=== PATIENT | female | born 1975 | race Caucasian/White ===

== ENCOUNTER 2018-01-26 15:46 | Inpatient (IN) | payer BC, OTHER ==
[~2018-01-26] VITALS: Ht 162.6 cm; Wt 65.8 kg
[2018-01-26] MEDS ORDERED: LORAZEPAM 1 MG TABLET PO PRN (17:00)
[2018-01-26] MEDS ORDERED: diphenhydrAMINE 50 MG CAPSULE PO PRN (17:00)
[2018-01-26] MEDS ORDERED: THIAMINE HCL 200 MG/2 ML VIAL IM ONE (17:00)
[2018-01-26] MEDS ORDERED: DOCUSATE SODIUM 250 MG CAPSULE PO PRN (17:00)
[2018-01-26] MEDS ORDERED: LORAZEPAM 2 MG/1 ML VIAL IM PRN (17:00)
[2018-01-26] MEDS ORDERED: BUPRENORPHINE HCL 2 MG TAB.SUBL SL PRN (17:00)
[2018-01-26] MEDS ORDERED: ACETAMINOPHEN 325 MG TABLET PO PRN (17:00)
[2018-01-26] MEDS ORDERED: NICOTINE POLACRILEX 4 MG GUM-PK OF TEN BC PRN (17:00)
[2018-01-26] MEDS ORDERED: ONDANSETRON 4 MG/2 ML VIAL IM PRN (17:00)
[2018-01-26] MEDS ORDERED: MIRALAX 17 GM POWD.PACK PO PRN (17:00)
[2018-01-26] MEDS ORDERED: LOPERAMIDE HCL 2 MG CAPSULE PO PRN ×2 (17:00)
[2018-01-26] MEDS ORDERED: MAGNESIUM HYDROXIDE 30 ML LIQUID UDC PO PRN (17:00)
[2018-01-26] MEDS ORDERED: MAG HYDROX/AL HYDROX/SIMETH 30 ML LIQUID UDC PO PRN (17:00)
[2018-01-26] MEDS ORDERED: NICOTINE 14 MG/24HR PATCH TD PRN (17:00)
[2018-01-26] MEDS ORDERED: DICYCLOMINE HCL 20 MG TABLET PO PRN (17:00)
[2018-01-26] MEDS ORDERED: CLONIDINE HCL 0.1 MG TABLET PO PRN (17:00)
--- NOTE | 2018-01-26 17:00 | NUR ---
INTAKE ASSESSMENT Received patient in intake. she is AOX4, stable, and ambulatory. Vital signs WNL. Patient reports NKA. Patient denies any history of seizure. Patient brought medications from home. Explained unit protocols and patient verbalized understanding. Will admit patient upon admission to third floor.
[2018-01-26] MEDS ORDERED: CELE100C PO (17:08)
[2018-01-26] MEDS ORDERED: METH500T PO (17:08)
[2018-01-26] MEDS ORDERED: PREG200C PO (17:08)
[2018-01-26] MEDS ORDERED: ESCI10TA PO (17:08)
[2018-01-26] MEDS ORDERED: QUET50TA PO (17:08)
--- NOTE | 2018-01-26 17:15 | NUR ---
ADMISSION NOTE STATUS-FULL CODE ALLERGY-NKA HEIGHT-5'4' WEIGHT-145IBS VITAL SIGNS-BP: 131/90, P: 72, R: 18, O2: 96%, T: 97.1, PA: 0/10 PCP-DR. Da Silva in [place] Pt is a 42 year old female admitted on 01/26/18 for ETOH dependence, arrived on the unit at 1715. Pt able to provide UDS during intake. Skin and body check completed. Pt is full code, NKA, regular diet and on fall/seizure precautions. No reported seizure history. Patient reports PMH of anxiety,depression,Chronic lower back pain, Hep-C, Alcohol induced cirrhosis. Pt refuses flu/pneumonia vaccine. Pt is currently intoxicated and reports her last intake was Beer in the flight 3 bottles of Barley. Pt brought home medication with her. Patient reports first using alcohol at age [age] years old. Patient reported never sober since past 10 years and was in treatment in [facility] and left AMA and relapsed. Patient reports drinking beer, taking Xanax for last 5 years 2 to 6 bars daily last used was on 01/26/18 2 bars PO, Hydrocodone for last 5 years on and off from 60 to 80 mg PO daily last used was 01/26/18 14mg PO. Pt reports this is her 11th time in treatment. Patient is unable to recall the names but last one was in November 2017 in [facility]. Patient reports family history of using ETOH, and medical history of DM-2 and HTN. Upon assessment, pt is AAOx4 and presents with anxiety, agitation, fatigue. Respirations even and unlabored. Denies SOB or chest pain. Bowel sounds active x 4, abdomen soft. PERRLA. Skin intact, no open wounds noted. Pt denies SI/HI at this time. Patient denies any history of SI/HI. Pt oriented to room and encouraged to notify staff with any concerns. Safety measures in place. Call light within reach, side rails up x 2, bed locked and in low position. Will continue to monitor. Addendum: 01/26/18 at 1908 by MARY KATE DEVINE LVN ERROR- Patient admitted for ETOH/OPIOID WITHDRAWAL
[2018-01-26 17:19] LABS: *URINE HCG, QUAL NEGATIVE (NEGATIVE)
[2018-01-26 17:20] LABS: BASOPHILS % (AUTO) 0.4 % (0.0-2.0); EOSINOPHILS # (AUTO) 0.1 K/uL (0.0-0.7); EOSINOPHILS % (AUTO) 0.8 % (0.0-7.0); HEMATOCRIT 47.6 % (31.2-41.9); HEMOGLOBIN 16.1 g/dL (10.9-14.3); LYMPHOCYTES # (AUTO) 5.1 K/uL (20.0-40.0); LYMPHOCYTES % (AUTO) 46.6 % (20.5-51.5); MEAN CORPUSCULAR HEMOGLOBIN 29.7 uug (24.7-32.8); MEAN CORPUSCULAR HGB CONC 34 g/dL (32.3-35.6); MEAN CORPUSCULAR VOLUME 87.6 fL (75.5-95.3); MONOCYTES # (AUTO) 0.8 K/uL (2.0-10.0); MONOCYTES % (AUTO) 6.9 % (0.0-11.0); NEUTROPHILS % (AUTO) 45.3 % (38.5-71.5); PLATELET COUNT (AUTO) 127 K/uL (179-408); RED BLOOD CELL COUNT(AUTO) 5.43 MIL/uL (3.63-4.92); WHITE BLOOD COUNT (AUTO) 11.1 K/uL (3.8-11.8)
[2018-01-26 17:30] LABS: BILIRUBIN,TOTAL 0.5 mg/dL (0.2-1.0); CREATININE 0.6 mg/dL (0.6-1.3); POTASSIUM 3.6 mmol/L (3.5-5.1); TOTAL PROTEIN, SERUM 8.1 g/dL (6.4-8.2)
[2018-01-26 17:36] LABS: *AMPHETAMINE, URINE NEGATIVE (NEGATIVE); *BARBITURATE, URINE NEGATIVE (NEGATIVE); *CANNABINOID, URINE POSITIVE (NEGATIVE); *COCCAINE, URINE NEGATIVE (NEGATIVE); *OPIATE, URINE POSITIVE (NEGATIVE); *PHENCYCLIDINE SCREEN,URINE NEGATIVE (NEGATIVE)
[2018-01-26 17:38] LABS: THYROID STIMULATING HORMONE 1.054 mIU/mL (0.358-3.740)
--- NOTE | 2018-01-26 19:01 | NUR ---
END OF SHIFT NOTE Patient newly admitted for ETOH withdrawal. Patient presented anxious,agitated currently resting in her room. During shift patient received Thiamine IM on left deltoid tolerated well. Patient is compliant with tx and medications. Vital signs WNL. Skin intact warm and dry to touch. Safety measures in place. Patient endorsed to night nurse in stable condition. Addendum: 01/26/18 at 1908 by MARY KATE DEVINE LVN ERROR- Patient admitted for ETOH/OPIOID WITHDRAWAL
--- NOTE | 2018-01-26 19:30 | NUR ---
START OF SHIFT Pt is a 42 y/o female admitted on 01/26/18 for ETOH, benzo and opiate withdrawal. Pt will start a 5 day Ativan and Subutex taper. No PRNs administered during day shift. Pt came in today intoxicated from beer, Xanax and Hydrocodone. Upon assessment pt presents with agitation, anxiety, flushed skin, sweats, body aches, irritability, increased HR, nausea, fatigue, flat affect, difficulty concentrating, anhedonia and dysphoria. Pt appears uncomfortable. Medications due. Safety measures in place. Call light within reach. Will continue to monitor.
[2018-01-26 20:00] VITALS: BP 113/83
[2018-01-26] MEDS: METHOCARBAMOL 750 MG TABLET PO PRN (20:13)
--- NOTE | 2018-01-26 20:13 | NUR ---
PRN ZOFRAN ODT AND ROBAXIN ADMINISTRATION Pt reports nausea with no vomiting and body aches 05/27. Safety measures in place. Call light within reach. Will continue to monitor.
[2018-01-26] MEDS: ONDANSETRON ODT 4 MG TAB.RAPDIS SL PRN (20:14)
[2018-01-26] MEDS: PREGABALIN 100 MG CAPSULE PO SCH (20:14)
--- NOTE | 2018-01-26 20:43 | NUR ---
LEONEL PHILIPPE ODT REASSESSMENT Pt reports nausea has ceased, no episodes of vomiting. Safety measures in place. Call light within reach. Will continue to monitor.
[2018-01-26] MEDS ORDERED: LORAZEPAM 1 MG TABLET PO SCH (21:00)
--- NOTE | 2018-01-26 21:13 | NUR ---
PRN ROBAXIN REASSESSMENT Pt laying in bed with eyes closed, medications noted effective. Safety measures in place. Call light within reach. Will continue to monitor.
[2018-01-27] VITALS: BP 122/89
--- NOTE | 2018-01-27 | NUR ---
COWS/CIWA DEFERRED Pt is laying in bed with eyes closed, COWS/CIWA deferred. Respirations even and unlabored. Safety measures in place. Call light within reach. Will continue to monitor.
[2018-01-27] MEDS: LORAZEPAM 1 MG TABLET PO PRN (03:41)
[2018-01-27] MEDS: IBUPROFEN 600 MG TABLET PO PRN ×2 (03:41→21:43)
--- NOTE | 2018-01-27 03:41 | NUR ---
PRN MOTRIN AND ATIVAN 2 MG ADMINISTRATION Pt reports headache and back pain 6/10. Pt presents with anxiety, agitation, tremors, sweats and flushed skin. CIWA 19, orders to give PRN Ativan 2 mg. Safety measures in place. Call light within reach. Will continue to monitor.
[2018-01-27 04:00] VITALS: BP 123/78
--- NOTE | 2018-01-27 04:41 | NUR ---
PRN MOTRIN AND ATIVAN 2 MG REASSESSMENT Pt laying in bed with eyes closed, medications noted effective. Respirations even and unlabored. Safety measures in place. Call light within reach. Will continue to monitor.
--- NOTE | 2018-01-27 07:09 | NUR ---
END OF SHIFT Pt is a 42 y/o female admitted on 01/26/18 for ETOH, benzo and opiate withdrawal. Pt will start a 5 day Ativan and Subutex taper. Pt presented with agitation, anxiety, flushed skin, sweats, body aches, irritability, increased HR, nausea, fatigue, flat affect, difficulty concentrating, difficulty falling and staying asleep, anhedonia and dysphoria. Scheduled medications and PRN Zofran odt and Robaxin administered, effective in S/S of withdrawal AEB COWS 10 CIWA 19 lowered to COWS 7 CIWA 14. Pt slept 5 hours. Intake 1000 ml, void x 2, stool x 0. Safety measures in place. Pts needs have been met. Call light within reach. Endorsed to day shift nurse.
[2018-01-27 08:00] VITALS: BP 121/87
--- NOTE | 2018-01-27 08:10 | NUR ---
START OF SHIFT NOTE Received report from night nurse, 42 year old female admitted for ETOH, Benzo(Xanax), Opioid(Hydrocodone) withdrawal. Patient placed on Ativan and Subutex taper. Per endorsement patient received PRN Robaxin, Ativan 2mg, Zofran effective per night nurse, last CIWA-14, COWS-7, slept for 5 hours. Received patient alert awake agitated, anxious, labile facial expression, runny nose watery eyes, nausea. Patient due for scheduled medications. Educated patient with current plan of the day and medications regimen and importance of attending groups and activities with good verbal understanding. Safety measures in place. Will cont with plan of care.
[2018-01-27] MEDS: MULTIVITAMINS,THERAPEUTIC TABLET PO SCH (08:22)
[2018-01-27] MEDS: THIAMINE HCL 100 MG TABLET PO SCH (08:22)
[2018-01-27] MEDS: PREGABALIN 100 MG CAPSULE PO SCH ×3 (08:22→21:42)
[2018-01-27] MEDS: FOLIC ACID 1 MG TABLET PO SCH (08:22)
[2018-01-27] MEDS: LORAZEPAM 1 MG TABLET PO SCH ×4 (08:22→21:42)
[2018-01-27] MEDS: BUPRENORPHINE HCL 2 MG TAB.SUBL SL SCH ×4 (08:22→21:43)
[2018-01-27] MEDS ORDERED: TUBERCULIN,PURIF.PROT.DERIV. 5 TU/0.1 ML TEST ID ONE (09:00)
[2018-01-27 12:00] VITALS: BP 150/100
[2018-01-27] MEDS: BENZOCAINE/MENTH/CETYLPYRD LOZENGE MM PRN (12:26)
--- NOTE | 2018-01-27 12:26 | NUR ---
PRN CLONIDINE/CEPACOL Patient's blood pressure noted 150/100, patient also c/o of sore throat. PRN Clonidine 0.1mg PO, Cepacol 1 lozenge as ordered. Encourage PO fluids as ordered. Will cont to monitor and reassess the pt.
--- NOTE | 2018-01-27 13:26 | NUR ---
CLONIDINE/CEPACOL REASSESSMENT Blood pressure noted 137/85 and per patient feeling relief from sore throat.
[2018-01-27] MEDS: ESCITALOPRAM OXALATE 10 MG TABLET PO SCH (14:44)
[2018-01-27 16:00] VITALS: BP_SYST 121; BP_SYST 134; BP_DIAS 84; BP_DIAS 87
[2018-01-27 16:18] LABS: *BILIRUBIN,URIN NEGATIVE (NEGATIVE); *BLOOD, URINE NEGATIVE (NEGATIVE); *CLARITY,URINE CLOUDY (CLEAR); *COLOR,URINE YELLOW (YELLOW); *KETONES,URINE NEGATIVE (NEGATIVE); *PROTEIN,URINE NEGATIVE (NEGATIVE); LEUKOCYTE ESTERASE ,URINE TRACE (NEGATIVE); NITRITE, URINE NEGATIVE (NEGATIVE); PH,URINE 5.5 (5.0-8.0); UGLUCOSE NEGATIVE (NEGATIVE)
[2018-01-27 16:28] LABS: BACTERIA,URINE MANY /HPF (NONE SEEN); RBC,URINE 0-3 /HPF (0-3); SQUAMOUS EPITHELIAL CELL,UR MODERATE /HPF (NONE SEEN)
[2018-01-27] MEDS ORDERED: QUETIAPINE FUMARATE 25 MG TABLET PO PRN (16:45)
--- NOTE | 2018-01-27 19:13 | NUR ---
END OF SHIFT NOTE Patient presented with anxiety, agitation, body aches, runny nose, chills, sweats, yawning, labile facial expression, tremors noted on bilateral hands. Patient admitted for ETOH/Opioid withdrawal and placed on 5 days Ativan/Subutex taper. Subutex taper started this morning COWS score noted 15. Patient reported medications were effective in controlling her withdrawal symptoms. Vital signs WNL. During shift patient received PRN Clonidine 0.1mg PO and Cepacol noted to be effective. PPD was given on LFA no swelling noted at this time. Skin intact warm and dry to touch. Patient was seen by psychiatrist with new order to start Lexapro 10mg PO medication administered as ordered. Encourage pt to develop coping skills and utilization of non pharmacological intervention. Patient was encouraged to participates in groups therapy session. Encourage diversional activities to alleviate anxiety. Patient denies any SI/HI. Safety measures in place. Patient endorsed to night nurse in stable condition.
--- NOTE | 2018-01-27 19:30 | NUR ---
START OF SHIFT Pt is a 42 y/o female admitted on 01/26/18 for ETOH, benzo and opiate withdrawal. Pt is on a 5 day Ativan and Subutex taper that started on 01/27/18, tolerating well. Per day shift nurse last COWS 11 and CIWA 11 and PRN Clonidine and Cepacol administered. Upon assessment pt presents with agitation, anxiety, flushed skin, emotional lability, sweats, body aches, leg pain, tremors, headache, irritability, nausea, fatigue, flat affect, difficulty concentrating, difficulty falling asleep, anhedonia and dysphoria. Pts room is unkempt and appears disheveled. Medications due. Safety measures in place. Call light within reach. Will continue to monitor.
[2018-01-27 20:00] VITALS: BP 139/93
[2018-01-27] MEDS: METHOCARBAMOL 750 MG TABLET PO PRN (21:43)
[2018-01-27] MEDS: ONDANSETRON ODT 4 MG TAB.RAPDIS SL PRN (21:43)
--- NOTE | 2018-01-27 21:43 | NUR ---
PRN ROBAXIN, MOTRIN AND ZOFRAN ODT ADMINISTRATION Pt reports generalized body aches, leg pain and intermittent headache /. Pt complains of nausea without vomiting. Safety measures in place. Call light within reach. Will continue to monitor.
--- NOTE | 2018-01-27 22:43 | NUR ---
LEONEL GOYAL, LAVELLE AND ZOFRAN REASSESSMENT Pt reports body aches and leg pain improved to tolerable level. Reports nausea has ceased at this time. Safety measures in place. Call light within reach. Will continue to monitor. Addendum: 01/28/18 at 0630 by KATYA BROWN RN ZOFRAN REASSESSMENT AT [id number], NOT [id number]
--- NOTE | 2018-01-27 23:43 | NUR ---
PRN SEROQUEL ADMINISTRATION Seroquel 50 mg administered for agitation and insomnia. Relaxation techniques encouraged. Pt reports having feelings of agitation r/t not having more of her beauty supplies and cigarettes. Safety measures in place. Call light within reach. Will continue to monitor.
[2018-01-28] VITALS: BP 123/86
[2018-01-28] MEDS ORDERED: ALBUTEROL SULFATE 2.5 MG/3 ML NEBU NEB PRN (00:15)
--- NOTE | 2018-01-28 00:43 | NUR ---
PRN SEROQUEL REASSESSMENT Pt laying in bed with eyes closed, medication noted effective. Respirations even and unlabored. Safety measures in place. Call light within reach. Will continue to monitor.
[2018-01-28 04:00] VITALS: BP 127/82
--- NOTE | 2018-01-28 04:00 | NUR ---
CIWA/COWS DEFERRED Pt laying in bed with eyes closed, CIWA/COWS deferred, to be assessed when pt is awake per orders. Respirations even and unlabored. Safety measures in place. Call light within reach. Will continue to monitor.
[2018-01-28 06:06] LABS: HEPATITIS B SURFACE AG Negative (Negative)
[2018-01-28] MEDS: ONDANSETRON ODT 4 MG TAB.RAPDIS SL PRN (06:13)
--- NOTE | 2018-01-28 06:13 | NUR ---
PRN ATIVAN 2 MG, ZOFRAN ODT, ROBAXIN AND MOTRIN ADMINISTRATION Pt reports generalized body aches, back and leg pain 06/27. CIWA 22, pt presents with tremors, sweats, anxiety, agitation, restlessness and nausea without vomiting. Safety measures in place. Call light within reach. Will continue to monitor.
[2018-01-28] MEDS: LORAZEPAM 1 MG TABLET PO PRN (06:14)
[2018-01-28] MEDS: IBUPROFEN 600 MG TABLET PO PRN ×2 (06:14→12:14)
[2018-01-28] MEDS: METHOCARBAMOL 750 MG TABLET PO PRN (06:14)
--- NOTE | 2018-01-28 07:13 | NUR ---
PRN ATIVAN 2 MG, ZOFRAN ODT, ROBAXIN AND MOTRIN REASSESSMENT CIWA 22 lowered to CIWA 9. Pt has improvement in nausea, anxiety, agitation, restlessness, sweats and tremors. Pt reports nausea is now "mild instead of moderate," and reports her body aches, back pain and leg pain reduced to tolerable level. Safety measures in place. Call light within reach. Will continue to monitor.
--- NOTE | 2018-01-28 07:18 | NUR ---
END OF SHIFT Pt is a 42 y/o female admitted on 01/26/18 for ETOH, benzo and opiate withdrawal. Pt is on a 5 day Ativan and Subutex taper that started on 01/27/18, tolerating well. Pt presented with agitation, anxiety, flushed skin, emotional lability, sweats, body aches, leg pain, tremors, headache, irritability, nausea, fatigue, flat affect, difficulty concentrating, difficulty falling asleep, anhedonia and dysphoria. Pts room is unkempt and appears disheveled. Pt has dry cough and sore throat. Pt had episodes of agitation with feelings of wanting to leave r/t not having more of her beauty products and cigarettes. Pt reported that she has PMH of asthma and states she sometimes gets shortness of breath with wheezing at nighttime and typically takes Albuterol inhaler or breathing treatment. Pt denies SOB, but had mild wheezing. MD notified. Pt woke up at 0600 complaining of w/d S/S. Scheduled medications and PRN Ativan 2 mg, Robaxin x 2, Motrin x2, Zofran odt x 2 and Seroquel administered, effective in S/S of withdrawal AEB COWS 14 CIWA 22 lowered to COWS 14 CIWA 9. Pt slept 6 hours. Intake 1500 ml, void x 4, stool x 0. Safety measures in place. Pts needs have been met. Endorsed to day shift nurse.
--- NOTE | 2018-01-28 07:30 | NUR ---
START OF SHIFT NOTE Received report from night nurse, 42 year old female admitted for ETOH, Benzo(Xanax), Opioid(Hydrocodone) withdrawal. Patient cont on Ativan and Subutex taper. Per endorsement patient received PRN Robaxin x2, Ativan 2mg, Zofran x2, Motrin x2, Seroquel effective per night nurse, last CIWA-9, COWS-14, slept for 6 hours. Received patient alert awake agitated, anxious, bilateral hand tremors noted, runny nose watery eyes, chills, hot and cold flashes, nausea. Patient due for scheduled medications. Educated patient with current plan of the day and medications regimen and importance of attending groups and activities with good verbal understanding. Safety measures in place. Will cont with plan of care.
[2018-01-28 08:16] VITALS: BP 108/78
[2018-01-28] MEDS: FOLIC ACID 1 MG TABLET PO SCH (08:27)
[2018-01-28] MEDS: MULTIVITAMINS,THERAPEUTIC TABLET PO SCH (08:27)
[2018-01-28] MEDS: ESCITALOPRAM OXALATE 10 MG TABLET PO SCH (08:28)
[2018-01-28] MEDS: PREGABALIN 100 MG CAPSULE PO SCH ×3 (08:28→20:58)
[2018-01-28] MEDS: THIAMINE HCL 100 MG TABLET PO SCH (08:28)
[2018-01-28] MEDS: BUPRENORPHINE HCL 2 MG TAB.SUBL SL SCH ×3 (08:28→20:58)
[2018-01-28] MEDS: LORAZEPAM 1 MG TABLET PO SCH ×3 (08:28→20:59)
[2018-01-28 12:00] VITALS: BP 123/88
[2018-01-28] MEDS: LIDOCAINE 5% PATCH TD SCH (12:02)
--- NOTE | 2018-01-28 12:14 | NUR ---
PRN MOTRIN Patient c/o of lower back pain 04/27. PRN Motrin 600mg PO given as ordered. Will cont to monitor and reassess.
--- NOTE | 2018-01-28 13:14 | NUR ---
MOTRIN REASSESSMENT Per patient Garza was effective pain lower to 1/10.
[2018-01-28] MEDS ORDERED: QUETIAPINE FUMARATE 25 MG TABLET PO PRN (14:30)
[2018-01-28 16:00] VITALS: BP 129/85
[2018-01-28] MEDS: BENZOCAINE/MENTH/CETYLPYRD LOZENGE MM PRN (16:23)
--- NOTE | 2018-01-28 16:24 | NUR ---
Cepacol lozenge Pt has a cough with sore throat. PRN Cepacol lozenge administered.
--- NOTE | 2018-01-28 17:24 | NUR ---
PRN Lozenge PRN lozenge effective. Pt's cough is relieved. Addendum: 01/28/18 at 1859 by THEO NASH RN This is PRN Lozenge reassessment
--- NOTE | 2018-01-28 18:56 | NUR ---
END OF SHIFT NOTE Patient presented with anxiety, agitation, body aches, sore throat, chills, sweats, labile facial expression, tremors noted on bilateral hands. Patient admitted for ETOH/Opioid withdrawal. Patient cont with Ativan/Subutex taper tolerating well. Vital signs WNL. During shift patient received PRN Clonidine 0.1mg PO and Cepacol noted to be effective. Skin intact warm and dry to touch. Patient was seen by psychiatrist and Seroquel 50mg PO changed to 25mg PO. Encourage pt to develop coping skills and utilization of non pharmacological intervention. Patient was encouraged to participates in groups therapy session. Encourage diversional activities to alleviate anxiety. Patient denies any SI/HI. Safety measures in place. Patient endorsed to night nurse in stable condition.
--- NOTE | 2018-01-28 19:00 | NUR ---
Start of Shift Patient Received. Patient is in activities room participating in a group meeting. Per endorsement, patient continues on a modified Ativan and modified Subutex taper. UA resulted with new orders for Macrobid 100mg Q12H. Patient also seen by psychiatrist with changes to Seroquel order from 50mg to 25mg. Patient received PRN Motrin with medication noted to be effective. Last noted CIWA 12 and CIWA 12. All needs attended to promptly. Will continue plan of care as ordered.
[2018-01-28 20:26] VITALS: BP 122/88
[2018-01-28] MEDS: LACTOBACILLUS RHAMNOSUS GG 1 EACH CAPSULE PO SCH (20:58)
[2018-01-28] MEDS: NITROFURANTOIN/NITROFURAN MAC 100 MG CAPSULE PO SCH (20:58)
[2018-01-28] MEDS ORDERED: diphenhydrAMINE 50 MG CAPSULE PO ONE (23:30)
--- NOTE | 2018-01-28 23:30 | NUR ---
One-time Benadryl Pt refused Seroquel for sleep and requested for Benadryl instead. Obtained order from Dr. Liu of Benadryl 50 mg PO one-time. Administered. Primary nurse to reassess.
[2018-01-29 00:30] VITALS: BP 126/81
--- NOTE | 2018-01-29 00:30 | NUR ---
Onetime Benadryl Reassessment Patient is noted in bed sleeping. Breathing even and non labored. No restlessness or discomfort noted. Patient was given onetime dose of Benadryl with medication noted to be effective. Will continue to monitor.
[2018-01-29 04:15] VITALS: BP 118/72
--- NOTE | 2018-01-29 07:17 | NUR ---
End of Shift Patient is in bed sleeping but easily aroused to verbal stimuli. Breathing even and non labored. Patient continues on a modified Ativan and modified Subutex taper. Macrobid 100mg Q12H started for UTI, first dose given and tolerated well. Patient refused PRN Seroquel with new order for one time Benadryl. One time dose of Benadryl noted to be effective. Patient slept a total of 6 hours. Last noted COWS 10 and CIWA 12. All needs attended to promptly. Will endorse to continue plan of care as ordered.
--- NOTE | 2018-01-29 07:20 | NUR ---
START OF SHIFT PATIENT IS A 42 YEAR OLD FEMALE ADMITTED TO [facility] ON 01/26/18. PATIENT IS ON A 5 DAY ATIVAN / SUBUTEX TAPER. PATIENT IS SITTING ON BED AT THIS TIME COMPLAINING OF MUSCLE ACHES AFTER AWAKENING FROM SLEEPING FOR 6 HOURS, REASSURED PATIENT I WOULD BE BACK IN 45 MINS WITH HER MEDICATIONS AND ALSO PAIN MEDICATION FOR HER BACK. PATIENT PRESENTS WITH A FLAT AFFECT AND DEPRESSED STATE. PRN BENADRYL GIVEN ON PM SHIFT. LAST COWS 10 AND CIWA 12 ON PM SHIFT. CONTINUE TO FOLLOW MD PLAN OF CARE.
[2018-01-29 08:00] VITALS: BP 130/84
--- NOTE | 2018-01-29 08:15 | NUR ---
LEONEL ROBAXIN/MOTRIN 750MG PO ROBAXIN , 600MG PO MOTRIN GIVEN FOR PATIENT C/O BODY ACHES, WILL CONTINUE TO ASSESS Addendum: 01/29/18 at 0921 by KRISTIAN EDWARDS RN PATIENT STATES PAIN IS 05/27
[2018-01-29] MEDS: IBUPROFEN 600 MG TABLET PO PRN (08:17)
[2018-01-29] MEDS: NITROFURANTOIN/NITROFURAN MAC 100 MG CAPSULE PO SCH ×2 (08:17→21:12)
[2018-01-29] MEDS: PREGABALIN 100 MG CAPSULE PO SCH ×3 (08:17→21:12)
[2018-01-29] MEDS: THIAMINE HCL 100 MG TABLET PO SCH (08:17)
[2018-01-29] MEDS: ESCITALOPRAM OXALATE 10 MG TABLET PO SCH (08:17)
[2018-01-29] MEDS: METHOCARBAMOL 750 MG TABLET PO PRN (08:17)
[2018-01-29] MEDS: LACTOBACILLUS RHAMNOSUS GG 1 EACH CAPSULE PO SCH ×2 (08:17→21:12)
[2018-01-29] MEDS: FOLIC ACID 1 MG TABLET PO SCH (08:18)
[2018-01-29] MEDS: LIDOCAINE 5% PATCH TD SCH (08:18)
[2018-01-29] MEDS: MULTIVITAMINS,THERAPEUTIC TABLET PO SCH (08:18)
[2018-01-29] MEDS ORDERED: BUPRENORPHINE HCL 2 MG TAB.SUBL SL SCH (09:00)
[2018-01-29] MEDS ORDERED: LORAZEPAM 1 MG TABLET PO SCH ×2 (09:00→21:00)
--- NOTE | 2018-01-29 09:15 | NUR ---
PRN REASSESS PATIENT STATES ROBAXIN AND MOTRIN EFFECTIVE , PAIN NOW 02/25, WILL CONTINUE TO MONITOR
[2018-01-29 12:00] VITALS: BP 134/95
[2018-01-29] MEDS: LORAZEPAM 1 MG TABLET PO SCH ×2 (13:21→16:59)
[2018-01-29] MEDS: KETOROLAC TROMETHAMINE 30 MG INJ IM PRN ×2 (13:43→17:36)
--- NOTE | 2018-01-29 13:45 | NUR ---
PRN TORADOL 30MG IM TORADOL GIVEN FOR C/O GENERALIZED BODY ACHES
--- NOTE | 2018-01-29 14:45 | NUR ---
PRN REASSESS TORADOL EFFECTIVE , PATIENT STATES HER PAIN IS NOW 3/10 WAS 7/10 CONTINUE TO MONITOR
[2018-01-29] MEDS: BUPRENORPHINE HCL 2 MG TAB.SUBL SL SCH ×2 (15:22→21:13)
[2018-01-29 16:00] VITALS: BP 136/91
[2018-01-29] MEDS: ONDANSETRON ODT 4 MG TAB.RAPDIS SL PRN (17:00)
--- NOTE | 2018-01-29 17:00 | NUR ---
PRN ZOFRAN SL 4MG ZOFRAN SL GIVEN FOR REPORTS OF N/V
--- NOTE | 2018-01-29 17:40 | NUR ---
PRN ZOFRAN 4MG SL NOT EFFECTIVE, PT DEMANDED THE IM ZOFRAN GIVEN, WILL CONTINUE TO MONITOR
--- NOTE | 2018-01-29 19:01 | NUR ---
END OF SHIFT: PATIENT IS A 42 YEAR OLD FEMALE ADMITTED TO [facility] ON 01/26/18. PATIENT IS ON A 5 DAY ATIVAN / SUBUTEX TAPER. PATIENT PRESENTS WITH A FLAT AFFECT AND DEPRESSED STATE AND HAS BEEN IRRITABLE MOST OF THE DAY. PRN ROBAXIN, MOTRIN, TORADOL AND ZOFRAN GIVEN ON THIS SHIFT. LAST COWS 10 AND CIWA 12 @ 1600. PATIENT HAD A FLUID INTAKE OF 3000ML, 10 VOIDS AND 0 BM THIS SHIFT. SHE HAS ATTENDED ALL GROUPS TODAY. CONTINUE TO FOLLOW MD PLAN OF CARE.
[2018-01-29 20:00] VITALS: BP 131/96
--- NOTE | 2018-01-29 20:00 | NUR ---
Start of Shift Pt is a 42 year old female admitted for ETOH/Benzo withdrawal, placed on 5 day Ativan and 5 day Subutex taper. At time of assessment, pt presents in room, AAOx4, red eyes tearing, emotional, flushed/clammy skin, is irritable, anxious and reports, "I have body aches everywhere!", is fidgety, restless, reports abdominal cramping. Reassurance provided, education provided regarding disease process and medications that are due, safety measures in place, will continue to monitor.
[2018-01-29] MEDS: BACLOFEN 10 MG TABLET PO SCH (21:11)
[2018-01-29] MEDS: CLONIDINE HCL 0.1 MG TABLET PO SCH (21:12)
[2018-01-29] MEDS: diphenhydrAMINE 50 MG CAPSULE PO PRN (22:43)
--- NOTE | 2018-01-29 22:43 | NUR ---
PRN Administration Pt requests aid for sleep. Benadryl 50mg PRN administered. Safety measures in place, Will continue to monitor.
[2018-01-29] MEDS ORDERED: diphenhydrAMINE 50 MG CAPSULE PO ONE (22:45)
--- NOTE | 2018-01-29 23:43 | NUR ---
PRN Reassessment Pt is in bed, sleeping with eyes closed, resp even/unlabored. Benadryl for sleep effective. Safety measures in place, will continue to monitor.
[2018-01-30] VITALS: BP 119/88
[2018-01-30] MEDS: KETOROLAC TROMETHAMINE 30 MG INJ IM PRN ×3 (01:44→20:43)
--- NOTE | 2018-01-30 01:44 | NUR ---
PRN Administration Pt reported back pain, rated 10/10. Pt grasping at site, reports pain is aching and tight. Toradol 30mg/1ml inj PRN administered. Safety measures in place, Will continue to monitor.
--- NOTE | 2018-01-30 04:00 | NUR ---
COWS/CIWA deferred d/t pt sleeping to assess while pt is awake as ordered Pt refused to be woken for 0[address], will continue to monitor
--- NOTE | 2018-01-30 07:00 | NUR ---
End of Shift Pt is a 42 year old female admitted for ETOH/Benzo withdrawal, placed on 5 day Ativan and 5 day Subutex taper. During shift, pt AAOx4, presented with red eyes tearing, emotional, flushed/clammy skin, is irritable, anxious and reported, I have body aches everywhere!, is fidgety, restless, reported abdominal cramping. Reassurance provided, education provided regarding disease process and medications scheduled medications administered, latest COWS 9 and CIWA 8. Toradol 30mg/1ml inj administered for 10/10 back pain. Pt slept for 6 hours, intake of 1855 ml PO, voids x6 and stool x0. Safety measures in place, Endorsed to day shift nurse.
--- NOTE | 2018-01-30 07:36 | NUR ---
START OF SHIFT Pt is a 42 yr old female admitted on 01/26/18 for ETOH/Benzo/Opiate withdrawal and is on 5 day Ativan and 5 day Subutex taper as ordered. Medication chino well. Received report from inner tube inserter nurse. Pt received Benadryl PRN and Toradol PRN during the night. Medication was effective. Pt slept for 6 hrs. Last COWS score was 9 and CIWA score 8. Pt is currently on Macrobid for UTI, No adverse reaction noted. Pt is currently in bed resting with respirations even and unlabored. Skin is intact, warm and moist to touch. Pt is on fall and seizure precautions. Call light is within reach. Will continue to monitor.
[2018-01-30 08:30] VITALS: BP 104/71
[2018-01-30] MEDS: PREGABALIN 100 MG CAPSULE PO SCH ×3 (08:55→20:38)
[2018-01-30] MEDS: CLONIDINE HCL 0.1 MG TABLET PO SCH ×3 (08:56→20:38)
[2018-01-30] MEDS: BACLOFEN 10 MG TABLET PO SCH ×3 (08:58→20:39)
[2018-01-30] MEDS: LACTOBACILLUS RHAMNOSUS GG 1 EACH CAPSULE PO SCH ×2 (08:58→20:38)
[2018-01-30] MEDS: ESCITALOPRAM OXALATE 10 MG TABLET PO SCH (08:58)
[2018-01-30] MEDS: BUPRENORPHINE HCL 2 MG TAB.SUBL SL SCH ×3 (08:58→20:39)
[2018-01-30] MEDS: THIAMINE HCL 100 MG TABLET PO SCH (08:58)
[2018-01-30] MEDS: MULTIVITAMINS,THERAPEUTIC TABLET PO SCH (08:59)
[2018-01-30] MEDS: NITROFURANTOIN/NITROFURAN MAC 100 MG CAPSULE PO SCH ×2 (08:59→20:39)
[2018-01-30] MEDS: FOLIC ACID 1 MG TABLET PO SCH (08:59)
[2018-01-30] MEDS ORDERED: LORAZEPAM 1 MG TABLET PO SCH ×3 (09:00→21:00)
[2018-01-30] MEDS: LIDOCAINE 5% PATCH TD SCH (09:00)
--- NOTE | 2018-01-30 09:00 | NUR ---
MEDICATION REFUSED Pt refused to apply Lidoderm Patch as scheduled at 0900. Pt states, "The patch doesn't do anything for me". Pt was educated on the importance of medication regimen. Pt was able to verbalize understanding but continued to refuse. Will continue to monitor.
[2018-01-30 10:14] LABS: BASOPHILS % (AUTO) 0.2 % (0.0-2.0); EOSINOPHILS # (AUTO) 0.1 K/uL (0.0-0.7); EOSINOPHILS % (AUTO) 1.4 % (0.0-7.0); HEMATOCRIT 42.1 % (31.2-41.9); HEMOGLOBIN 14.1 g/dL (10.9-14.3); LYMPHOCYTES # (AUTO) 2.6 K/uL (20.0-40.0); LYMPHOCYTES % (AUTO) 24.1 % (20.5-51.5); MEAN CORPUSCULAR HEMOGLOBIN 29.6 uug (24.7-32.8); MEAN CORPUSCULAR HGB CONC 34 g/dL (32.3-35.6); MEAN CORPUSCULAR VOLUME 88.1 fL (75.5-95.3); MONOCYTES # (AUTO) 0.9 K/uL (2.0-10.0); MONOCYTES % (AUTO) 8.3 % (0.0-11.0); NEUTROPHILS # (AUTO) 7.2 K/uL (1.8-8.9); RED BLOOD CELL COUNT(AUTO) 4.77 MIL/uL (3.63-4.92); WHITE BLOOD COUNT (AUTO) 10.9 K/uL (3.8-11.8)
[2018-01-30 10:21] LABS: PLATELET COUNT (AUTO) 79 K/uL (179-408)
[2018-01-30 10:49] LABS: BILIRUBIN,DIRECT 0.1 mg/dL (0.0-0.2); BILIRUBIN,TOTAL 0.5 mg/dL (0.2-1.0); CREATININE 0.6 mg/dL (0.6-1.3); MAGNESIUM 1.7 mg/dL (1.8-2.4); POTASSIUM 4.2 mmol/L (3.5-5.1); TOTAL PROTEIN, SERUM 6.5 g/dL (6.4-8.2)
[2018-01-30 11:18] LABS: LYMPHOCYTES % (MANUAL) 27 % (20-40); MONOCYTES % (MANUAL) 9 % (2-10); NEUTROPHILS % (MANUAL) 64 % (42-75)
[2018-01-30 12:00] VITALS: BP 112/84
[2018-01-30] MEDS ORDERED: MAGNESIUM OXIDE 400 MG TABLET PO ONE (12:45)
--- NOTE | 2018-01-30 13:10 | NUR ---
PRN GIVEN Pt c/o lower back pain and leg pain /. Facial grimacing and rubbing the affected area was observed. Toradol 30mg IM PRN was given as ordered. Medication was chino well. Encouraged increase fluid intake. Will continue to monitor.
--- NOTE | 2018-01-30 14:10 | NUR ---
PRN RE-ASSESSMENT Toradol 30mg IM PRN was effective. Pt states her pain level subsided to 4/10. No facial grimacing is observed. Pt was encouraged increase fluid intake for hydration. Will continue to monitor.
--- NOTE | 2018-01-30 15:15 | NUR ---
Therapist prompted client about group times. Client stated she will attend all groups.
[2018-01-30 16:00] VITALS: BP 106/70
[2018-01-30] MEDS: ONDANSETRON ODT 4 MG TAB.RAPDIS SL PRN (18:48)
--- NOTE | 2018-01-30 18:48 | NUR ---
PRN GIVEN Pt c/o increase nausea. Pt denies any episodes of vomiting. Zofran 4mg SL PRN was given. Pt was encouraged increase fluid intake. Will continue to monitor.
--- NOTE | 2018-01-30 18:58 | NUR ---
END OF SHIFT Pt is a 42 yr old female, AA&Ox4. Pt was admitted on 01/26/18 for ETOH/Benzo/Opiate withdrawal and is on 5 day Ativan taper and 5 day Subutex taper. Pt has been cooperative with medication regimen and plan of care. Pt has been observed with increase anxiety and agitation during the day. Pt states her anxiety and agitation is caused by lack of sleep and increase pain on lower back and legs. Pt received Toradol 30mg IM PRN at 1302. Medication was effective. Skin is intact, warm and moist to touch. Fine tremors are seen on bilateral arms. Last COWS score was 9 and CIWA score was 9 at 1600. Pt c/o nausea. Zofran 4mg SL PRN was given at 1848. Endorsed to perinatal coordinator nurse to continue to monitor. Pt was encouraged increase fluid intake for hydration. Safety precautions observed. Call light is within reach.
--- NOTE | 2018-01-30 19:00 | NUR ---
Start of Shift Patient Received. Patient is noted in the activities room participating in a group meeting. Per endorsement, patient continues on a modified 5 day Ativan and 5 day Subutex. Patient is noted to cooperative with mediations and is tolerating plan of care well. Patient continues with increased anxiety and agitation. Patient received PRN Toradol for pain with medication noted to be effective. PRN Zofran for increased nausea. Patient received supplement of Mag due to abnormal lab results. Last noted COWS 9 and CIWA 9. All needs attended to promptly. Will continue plan of care as ordered.
--- NOTE | 2018-01-30 19:50 | NUR ---
PRN Medication Reassessment patient was give PRN Zofran for increased nausea and was able to verbalize medication was effective in minimizing nausea. Patient is noted verbalizing "I feel better its probably because I'm smoking so much." encouraged patient to minimize smoking and patient states "no that is not going to happen." Will continue to monitor.
[2018-01-30 20:36] VITALS: BP 128/83
--- NOTE | 2018-01-30 20:45 | NUR ---
PRN Medication Administration Patient is noted verbalizing increased pain. 07/28 to her right lower back. Reviewed routine medication with patient and patient states "no I'm waiting for the injection. They told me I could have it with my medications." encouraged patient to use non-pharmacological techniques. Patient states "I need medications not breathing techniques." PRN Toradol administered with routine medications. Will continue to monitor.
--- NOTE | 2018-01-30 21:45 | NUR ---
PRN Medication Reassessment Patient is able to verbalize "the medication helps me." PRN Toradol noted to be effective. Will continue to monitor.
[2018-01-30] MEDS: diphenhydrAMINE 50 MG CAPSULE PO PRN (23:30)
--- NOTE | 2018-01-30 23:30 | NUR ---
PRN Medication Administration Patient is noted verbalizing inability of falling asleep. PRN Benadryl administered. Will continue to monitor.
[2018-01-31 00:07] VITALS: BP 126/79
--- NOTE | 2018-01-31 00:30 | NUR ---
PRN Medication Reassessment Patient is in bed sleeping. Breathing even and non labored. No Restlessness or discomfort noted. PRN Benadryl noted to be effective. Will continue to monitor.
[2018-01-31 02:10] LABS: *GC NAA Negative (Negative); *TRIC.VAG. NAA Negative (Negative)
[2018-01-31 04:15] VITALS: BP 119/68
[2018-01-31] MEDS: KETOROLAC TROMETHAMINE 30 MG INJ IM PRN ×3 (06:33→22:53)
--- NOTE | 2018-01-31 06:39 | NUR ---
PRN Medication Administration Patient is noted awake and verbalizing "I want my injection. Give me my injection. I'm in alot of pain." Patient is verbalizing pain of 9/10. PRN Toradol administered. Will continue to monitor.
--- NOTE | 2018-01-31 07:28 | NUR ---
End of Shift Patient is in bed sleeping. Breathing even and non labored. No signs of restlessness or discomfort noted. Patient continues on a modified 5 day Ativan and 5 day Subutex. She was noted to be compliant with group meetings and social activities. Patient was noted with increased body aches, verbalizing increased anxiety, and increased agitation. Patient received PRN Toradol x2 for increased pain and PRN Benadryl for inability of falling asleep with medications noted to be effective. Patient slept for 6 hours. Patients last noted CIWA 4 and COWS 3. All needs attended to promptly. Will endorse to continue plan of care as ordered.
--- NOTE | 2018-01-31 07:30 | NUR ---
Start of Shift Coffee Maker Servicer received report on 42 year old female admitted to [facility] on 01/26/18 for medically managed symptom relief of ETOH, Benzodiazepine and Opiate withdrawal. Pt reports a PMH of anxiety, depression and Cirrhosis. Reports NKDA, full code and regular diet. Pt placed on fall, seizure and universal precautions. Pt placed on 5 day Ativan and Subutex taper, last COWS 3 and CIWA 4 at 0000. Pt has been tolerating well. Pt received Toradol x2 and Benadryl as PRN medications on NOC, per report. Coffee Maker Servicer encounters pt at nurses station. Pt is demanding to smoke prior to pts VS being taken. Pt is entitled, demanding, argumentative and irritable. Pt has an angry affect with congruent mood. A/O x4 and makes needs known. Pt is med seeking and somatic. Bed in low position with wheels locked and side rails up x2.
[2018-01-31 08:23] VITALS: BP 141/86
[2018-01-31] MEDS: BACLOFEN 10 MG TABLET PO SCH ×3 (08:42→20:49)
[2018-01-31] MEDS: BUPRENORPHINE HCL 2 MG TAB.SUBL SL SCH ×2 (08:42→20:50)
[2018-01-31] MEDS: FOLIC ACID 1 MG TABLET PO SCH (08:43)
[2018-01-31] MEDS: ESCITALOPRAM OXALATE 10 MG TABLET PO SCH (08:43)
[2018-01-31] MEDS: PREGABALIN 100 MG CAPSULE PO SCH ×3 (08:43→20:50)
[2018-01-31] MEDS: MULTIVITAMINS,THERAPEUTIC TABLET PO SCH (08:43)
[2018-01-31] MEDS: LACTOBACILLUS RHAMNOSUS GG 1 EACH CAPSULE PO SCH ×2 (08:43→20:49)
[2018-01-31] MEDS: NITROFURANTOIN/NITROFURAN MAC 100 MG CAPSULE PO SCH ×2 (08:43→20:49)
[2018-01-31] MEDS: THIAMINE HCL 100 MG TABLET PO SCH (08:43)
[2018-01-31] MEDS: LORAZEPAM 1 MG TABLET PO SCH ×2 (08:43→20:50)
[2018-01-31] MEDS: CLONIDINE HCL 0.1 MG TABLET PO SCH ×3 (08:43→20:50)
[2018-01-31] MEDS: LIDOCAINE 5% PATCH TD SCH (08:44)
[2018-01-31] MEDS ORDERED: DIPH50CA37 PO (13:18)
[2018-01-31] MEDS ORDERED: PREG100C PO (13:18)
[2018-01-31] MEDS ORDERED: LIDO30AD10 TD (13:18)
[2018-01-31] MEDS ORDERED: METH-406 PO (13:18)
[2018-01-31] MEDS ORDERED: QUET25TA PO (13:18)
[2018-01-31] MEDS ORDERED: DICY20TA28 PO (13:18)
[2018-01-31] MEDS ORDERED: CLON0.1T14 PO (13:18)
[2018-01-31] MEDS ORDERED: PREG200C PO (13:18)
[2018-01-31] MEDS ORDERED: IBUP-1955 PO (13:18)
[2018-01-31 13:41] VITALS: BP 121/61
--- NOTE | 2018-01-31 15:26 | NUR ---
PRN Toradol Pt complains of pain 07/28, lower back. Has attempted non-pharmacological interventions and is now requesting medication. Coil Winder administers per order, with pt tolerating well. Will continue to monitor, support and encourage according to plan of care.
--- NOTE | 2018-01-31 15:56 | NUR ---
PRN Re-Assessment Pt states she has relief. " That stuff works," Will continue to monitor, support and encourage according to plan of care
[2018-01-31 16:44] VITALS: BP 124/69
--- NOTE | 2018-01-31 19:07 | NUR ---
End of Shift Fund Development Manager provided report on 42 year old female admitted to [facility] on 01/26/18 for medically managed symptom relief of ETOH, Benzodiazepine and Opiate withdrawal. Pt reports a PMH of anxiety, depression and Cirrhosis. Reports NKDA, full code and regular diet. Pt placed on fall, seizure and universal precautions. Pt placed on 5 day Ativan and Subutex taper, last COWS 4 and CIWA 5 at 1600. Pt has been tolerating well. Pt has been cooperative and pleasant. Making her needs known kindly, irritability has ceased. Pt A/O x4. Clear of thought and speech. Pt remains med seeking and somatic. Bed in low position with wheels locked and side rails up x2.
--- NOTE | 2018-01-31 19:15 | NUR ---
Start of Shift Note: Received patient from day shift nurse. Patient is a 42 y.o female admitted on 01/26/18 for Opiate and Benzo dependence. Patient observed ambulating in the hallway, is restless and fidgety, appears anxious and irritable, reports 8/10 generalized body aches, sweating & chills. Patient received Patient continues on her 5-day Ativan and 5-day Subutex taper and she is on 5th day of her taper. Last COWS 4 CIWA 5 at 1600. Pt received PRN Toradol during the day and were effective per report. Educated patient current plan of care for the night and medication regimen. Safety measures in place. Will continue to monitor patient.
[2018-01-31 20:00] VITALS: BP 135/90
[2018-01-31] MEDS: diphenhydrAMINE 50 MG CAPSULE PO PRN (22:55)
--- NOTE | 2018-01-31 22:55 | NUR ---
PRN Toradol & Benadryl Patient complained of 8/10 back pain. Pt noted to be restless and with noted facial grimacing PRN Toradol administered to right deltoid. Pt also requested for medication to help her sleep. PRN Benadryl administered as ordered. Will monitor for effectiveness of medication.
--- NOTE | 2018-01-31 23:55 | NUR ---
PRN Reassessment Patient in bed and appears comfortable. Patient verbalized decreased in pain from 8/10 to 4/10 pain on her back. Safety measures in place. Will continue to monitor patient.
--- NOTE | 2018-02-01 07:24 | NUR ---
End of Shift Note: Patient is a 42 y.o female admitted for medically supervised withdrawal from Opiate and Benzo withdrawal. Patient is alert & oriented x4. Patient continues on her Subutex and Ativan taper and tolerating well. Last COWS 9 CIWA 9. Pt received PRN Toradol for pain and Benadryl for sleep and were effective. Pt remained stable and vitals note WNL. Will continue to monitor s/s of withdrawal. Pt still asleep at this time. Pt slept for a total of 7 hours. Fluid intake: 1558 ml. Voided 5x with no bowel movement during my shift. All needs attended. Safety measures in place. Will endorse to day shift nurse.
--- NOTE | 2018-02-01 07:30 | NUR ---
Start of shift -Pt is a 42 y/o female admitted for medically supervised withdrawal from Opiate, ETOH and Benzo withdrawal. Patient is alert & oriented x4. Denies c/o N/V/D. Patient continues on her Subutex and Ativan taper and tolerating well. Pt c/o back, hip and leg pain #10/10. At 1999 last COWS 8 CIWA 8. Pt remained stable and vitals note WNL. Pt slept for a total of 7 hours. Pt had uneventful night. NKA, FULL CODE. Safety measures in place. Will endorse to day shift nurse. Will continue to monitor s/s of withdrawal.
[2018-02-01] MEDS: KETOROLAC TROMETHAMINE 30 MG INJ IM PRN ×3 (07:38→22:16)
--- NOTE | 2018-02-01 07:41 | NUR ---
PRN Toradol 30 mg IM for chronic pain in back and left leg radiating down leg. Pt c/o pain #10/. restless, facial grimacing, moaning,
[2018-02-01 08:00] VITALS: BP 127/85
--- NOTE | 2018-02-01 08:15 | NUR ---
Reasses Chrissadol- pt states pain now #4/10, improved and she feels much better.
[2018-02-01] MEDS: LACTOBACILLUS RHAMNOSUS GG 1 EACH CAPSULE PO SCH ×2 (08:22→21:55)
[2018-02-01] MEDS: MULTIVITAMINS,THERAPEUTIC TABLET PO SCH (08:22)
[2018-02-01] MEDS: NITROFURANTOIN/NITROFURAN MAC 100 MG CAPSULE PO SCH ×2 (08:22→21:55)
[2018-02-01] MEDS: THIAMINE HCL 100 MG TABLET PO SCH (08:22)
[2018-02-01] MEDS: FOLIC ACID 1 MG TABLET PO SCH (08:23)
[2018-02-01] MEDS: PREGABALIN 100 MG CAPSULE PO SCH ×3 (08:23→21:55)
[2018-02-01] MEDS: ESCITALOPRAM OXALATE 10 MG TABLET PO SCH (08:23)
[2018-02-01] MEDS: BACLOFEN 10 MG TABLET PO SCH ×3 (08:23→21:55)
[2018-02-01] MEDS: CLONIDINE HCL 0.1 MG TABLET PO SCH ×3 (08:23→21:55)
[2018-02-01] MEDS: LIDOCAINE 5% PATCH TD SCH (08:24)
[2018-02-01] MEDS ORDERED: LORAZEPAM 1 MG TABLET PO SCH (09:00)
[2018-02-01] MEDS ORDERED: BUPRENORPHINE HCL 2 MG TAB.SUBL SL SCH (09:00)
[2018-02-01] MEDS: HYDROXYZINE PAMOATE 25 MG CAPSULE PO PRN ×2 (11:02→21:55)
--- NOTE | 2018-02-01 11:04 | NUR ---
PRN VISTARIL 50MG for anxiety, irritable, tearful.
[2018-02-01 12:00] VITALS: BP 122/83
--- NOTE | 2018-02-01 12:00 | NUR ---
Reassess- Vistaril, pt reports anxiety much better, pt less anxious.
[2018-02-01 16:00] VITALS: BP 107/71
--- NOTE | 2018-02-01 16:05 | NUR ---
PRN TORADOL 30 MG IM- pt c/o pain #8/10 right side and back radiates down leg.
--- NOTE | 2018-02-01 16:50 | NUR ---
Reassess Toradol- Pt states pain now #4/10, medication was effective.
--- NOTE | 2018-02-01 18:43 | NUR ---
End of shift -Pt is a 42 y/o female admitted for medically supervised withdrawal from Opiate, ETOH and Benzo withdrawal. Patient is alert & oriented x4. Denies c/o N/V/D. Patient completed her Subutex and Ativan taper. Pt has been labile, anxious, tearful, and irritable today. PRN Vistaril was given and effective. Pt c/o pain back and radiates down right leg #8/10 today. PRN Toradol given and was effective. At 1600 last COWS 6 CIWA 6. Pt remained stable and vitals note WNL. Pt participated in group therapy today. Adequate PO fluid intake 2774 ml, void x6, BM x2. NKA, FULL CODE. Safety measures in place. Will endorse to PM shift.
--- NOTE | 2018-02-01 19:30 | NUR ---
START OF SHIFT Pt is a 42 y/o female admitted on 01/26/18 for ETOH, benzo and opiate withdrawal. Pt finished a 5 day Ativan and Subutex taper and is scheduled to be d/c tomorrow. Per day shift nurse, last COWS 6 and CIWA 6 and PRN Toradol x 2 and Vistaril administered. Upon assessment pt walking in hallway and presents with agitation, irritability, anxiety, lower back pain 5/10, flat affect, emotionally labile, unkempt room and restlessness. Medications due. Safety measures in place. Call light within reach. Will continue to monitor.
[2018-02-01 20:00] VITALS: BP 101/74
--- NOTE | 2018-02-01 21:55 | NUR ---
PRN VISTARIL ADMINISTRATION Pt presents with anxiety, emotional lability, restlessness and is tearful. Safety measures in place. Call light within reach. Will continue to monitor.
--- NOTE | 2018-02-01 22:16 | NUR ---
PRN SEROQUEL AND TORADOL INJ ADMINISTRATION Pt requests sleep aid and appears severely agitated. Pt complains of 8/10 lower back pain, pt in tears, grasping site and is restless. Safety measures in place. Call light within reach. Will continue to monitor.
--- NOTE | 2018-02-01 22:55 | NUR ---
PRN VISTARIL REASSESSMENT Pt appears less anxious, restless and agitated, medication noted effective. Safety measures in place. Call light within reach. Will continue to monitor.
--- NOTE | 2018-02-01 23:16 | NUR ---
PRN SEROQUEL AND TORADOL REASSESSMENT Pt remains agitated and awake. Pt reports pain in lower back is tolerable, Toradol effective. Encouraged relaxation techniques. Pt is having feelings of wanting to leave AMA, educated patient about risks of leaving AMA, pt verbalized understanding. Safety measures in place. Call light within reach. Will continue to monitor.
[2018-02-02] VITALS: BP 100/57
--- NOTE | 2018-02-02 | NUR ---
COWS/CIWA DEFERRED AND VITALS REFUSED Pt laying in bed with eyes closed, COWS/CIWA deferred, to be assessed when pt is awake per orders. Vitals refused. Respirations even and unlabored. Safety measures in place. Call light within reach. Will continue to monitor. Addendum: 02/02/18 at 0115 by KATYA BROWN RN COWS/CIWA NOT DEFERRED AND VITALS NOT REFUSED
--- NOTE | 2018-02-02 04:00 | NUR ---
COWS/CIWA DEFERRED AND VITALS REFUSED Pt laying in bed with eyes closed, COWS/CIWA deferred, to be assessed when pt is awake per orders. Vitals refused. Respirations even and unlabored. Safety measures in place. Call light within reach. Will continue to monitor.
--- NOTE | 2018-02-02 07:21 | NUR ---
END OF SHIFT Pt is a 42 y/o female admitted on 01/26/18 for ETOH, benzo and opiate withdrawal. Pt finished a 5 day Ativan and Subutex taper and is scheduled to be d/c today. Pt presented with agitation, irritability, anxiety, lower back pain 06/27, flat affect, difficulty falling asleep, emotionally labile, unkempt room, restlessness and was occasionally tearful. Pt had feelings of wanting to leave AMA r/t feelings of agitation. Relaxation techniques encouraged and educated patient about risks of leaving AMA. Scheduled medications and PRN Vistaril, Seroquel and Toradol inj administered, effective in S/S of withdrawal as verbalized by pt. Last COWS 5 and CIWA 7. Pt slept 8 hours. Intake 100 ml, void x 2, stool x 0. Safety measures in place. Call light within reach. Pts needs have been met. Endorsed to day shift nurse. Addendum: 02/02/18 at 0728 by KATYA BROWN RN Pt slept 6 hours. Intake 1776 ml, void x 4, stool x 0.
--- NOTE | 2018-02-02 07:47 | NUR ---
Start of Shift Notes: Endorsement received from night nurse. Patient is a 42 year old female admitted for ETOH/BZO and opiate withdrawal who completed her 5-day Ativan and 5-day Subutex taper as ordered. No adverse reactions noted. Received patient in her room. Awake, alert and verbally responsive. Oriented x 4. Denies S/I or H/I noted. Denies AV hallucinations noted. Patient states "Can you give me my Toradol shot now? My pain is unbearable. Its a 10!" Educated patient on her medication regimen and the discharge process. Last 5/ 7. Slept for 7 hours. PRN Vistaril, Seroquel and Toradol given during the night. Patient verbalized good understanding of all the teachings and the discharge process. Will monitor.
[2018-02-02 08:00] VITALS: BP 126/74
[2018-02-02] MEDS: LACTOBACILLUS RHAMNOSUS GG 1 EACH CAPSULE PO SCH (08:15)
[2018-02-02] MEDS: KETOROLAC TROMETHAMINE 30 MG INJ IM PRN (08:15)
[2018-02-02] MEDS: FOLIC ACID 1 MG TABLET PO SCH (08:15)
[2018-02-02] MEDS: THIAMINE HCL 100 MG TABLET PO SCH (08:15)
[2018-02-02] MEDS: ESCITALOPRAM OXALATE 10 MG TABLET PO SCH (08:15)
[2018-02-02] MEDS: NITROFURANTOIN/NITROFURAN MAC 100 MG CAPSULE PO SCH (08:15)
[2018-02-02] MEDS: MULTIVITAMINS,THERAPEUTIC TABLET PO SCH (08:15)
[2018-02-02] MEDS: LIDOCAINE 5% PATCH TD SCH (08:15)
--- NOTE | 2018-02-02 08:15 | NUR ---
Toradol 30 mg IM given: Patient complained of "10" back pain r/t chronic back pain. Non-pharmacological interventions provided but ineffective. Medicated patient with Toradol 30 mg IM as ordered. Will monitor for effectiveness.
[2018-02-02 08:16] VITALS: BP 126/74
[2018-02-02] MEDS: PREGABALIN 100 MG CAPSULE PO SCH (08:16)
[2018-02-02] MEDS: BACLOFEN 10 MG TABLET PO SCH (08:16)
[2018-02-02] MEDS: CLONIDINE HCL 0.1 MG TABLET PO SCH (08:16)
--- NOTE | 2018-02-02 08:45 | NUR ---
Re-assessment: Toradol Patient verbalizes that PRN Toradol was effective in reducing back pain. PL is now 01/25.
--- NOTE | 2018-02-02 11:00 | NUR ---
Discharge: Patient education provided regarding her discharge instructions. She verbalizes good understanding of all teachings. All clothings, medications and valuables were returned to the patient. TANKERMAN cabinet checked. Toiletries were returned. Cassette checked. Denture cleanser was returned. Home meds were also returned. COWS 6/CIWA 6, patient presented with sweating, anxiety and agitation. Denies S/I or H/I. No AV hallucinations noted. Escorted off the unit by female TANKERMAN to be transported to [facility].
== END 2018-02-02 11:00 | DRG 895 ==
LOC: SRC 16:11
PROVIDERS: ADMIT Internal Medicine; ATTEND Internal Medicine
PROC: HZ2ZZZZ Detoxification Services for Substance Abuse Treatment (ICD-10-PCS; principal; 2018-01-26)
PROC: HZ41ZZZ Group Counseling for Substance Abuse Treatment, Behavioral (ICD-10-PCS; 2018-01-27)
PROC: HZ31ZZZ Individual Counseling for Substance Abuse Treatment, Behavioral (ICD-10-PCS; 2018-01-29)
DX: F10.239 Alcohol dependence with withdrawal, unspecified (principal); D69.6 Thrombocytopenia, unspecified; I15.9 Secondary hypertension, unspecified; N30.00 Acute cystitis without hematuria; K70.10 Alcoholic hepatitis without ascites; E83.42 Hypomagnesemia; K70.30 Alcoholic cirrhosis of liver without ascites; F11.23 Opioid dependence with withdrawal; F32.9 Major depressive disorder, single episode, unspecified; F10.232 Alcohol dependence with withdrawal with perceptual disturbance; Y90.9 Presence of alcohol in blood, level not specified; B96.20 Unspecified Escherichia coli [E. coli] as the cause of diseases classified elsewhere; F17.210 Nicotine dependence, cigarettes, uncomplicated; F13.232 Sedative, hypnotic or anxiolytic dependence with withdrawal with perceptual disturbance; G89.29 Other chronic pain; M54.5 Low back pain; F43.10 Post-traumatic stress disorder, unspecified; Z83.3 Family history of diabetes mellitus; Z82.49 Family history of ischemic heart disease and other diseases of the circulatory system; Z81.1 Family history of alcohol abuse and dependence; Z91.89 Other specified personal risk factors, not elsewhere classified; F12.20 Cannabis dependence, uncomplicated; J02.9 Acute pharyngitis, unspecified; R73.9 Hyperglycemia, unspecified; B19.20 Unspecified viral hepatitis C without hepatic coma
CPT/HCPCS: 36415; 70030-TC; 80307; 80346; 80349; 80361; 82746; 83690; 83735; 84443; 84703; 85025; 86403; 86580; 86592; 86705; 86803; 87070; 87077; 87086; 87340; 87491; 87806; A4663; G0480; J1885; J3411; Q0162; Q0163